=== PATIENT | male | born 1975 | race Caucasian/White ===

== ENCOUNTER 2017-05-24 13:17 | Outpatient (CLI) ==
--- NOTE | 2017-05-24 15:51 | MRI ---
EXAM: MRI of the left shoulder without contrast COMPARISON: None available. HISTORY: Left shoulder pain and decreased range of motion. TECHNIQUE: Multiplanar noncontrast MR images of the left shoulder were acquired using a 1.2 Perri ma gnet. Several sequences were repeated due to patient motion artifact. FINDINGS: No recent radiographs of the left shoulder are available for comparison and radiographic c orrelation is recommended. There is marked subscapularis tendinosis with a partial tear along the superior insertional fibers. Mild supraspinatus infraspinatus tendinosis. No full-thickness rotator cuff tear or tendon retractio n. No significant fluid in the subacromial/subdeltoid bursa. Mild glenohumeral joint osteoarthrosis without evidence of an acute fracture dislocation. There is a small joint effusion. There is hyperintense signal along the axillary pouch/anterior band of the in ferior glenohumeral ligament which may represent sequela of a capsular sprain/injury or changes of ad hesive capsulitis. There is limited assessment of the glenoid labrum on this non arthrographic study . Diminished size and hyperintense signal involving the anterior glenoid labrum and a tear at that s ite is not excluded on this non arthrographic study. The long head of the biceps is located within the bicipital groove and is intact. Long head biceps te nosynovitis. Moderate hypertrophic degenerative changes of the acromioclavicular joint with lateral downsloping of the acromion and a 2 mm subacromial spur. No evidence of an os acromiale or abnormal widening of th e acromioclavicular joint space. No soft tissue mass identified. IMPRESSION: 1. Hyperintense signal along the axillary pouch and anterior band of the inferior glenohumeral ligam ent which may represent sequela of a capsular sprain/injury or changes of adhesive capsulitis. Corre late clinically. 2. Rotator cuff tendinosis which is most severe involving the subscapularis with partial-thickness t ear of the insertional fibers of the subscapularis. No full-thickness rotator cuff tear or tendon re traction. 3. Hyperintense signal diminished size of the anterior glenoid labrum. A tear at that level is not excluded and correlation with MR arthrography could be considered if clinically warranted. 4. Moderate hypertrophic degenerative changes of the acromioclavicular joint with lateral downslopin g of the acromion representing potential sources of subacromial impingement. 5. Long head biceps tenosynovitis.
== END 2017-05-24 13:18 | disposition home or self-care (01) ==
LOC: RAD 13:17
PROVIDERS: ATTEND Family Medicine
DX: M25.512 Pain in left shoulder (principal)

== ENCOUNTER 2017-05-25 08:20 | Outpatient (RCR) ==
--- NOTE | 2017-06-01 11:00 | RS.OPPTEV2 ---
Date of Note: 05/25/17 Visit #: 1 Date of Evaluation: 05/25/17 Payer Source: Medicaid Surgery Performed?: No Treatment Diagnosis: L shld pain History of Condition/Mechanism of Injury:: pt states that he did not have a specific injury to L morganld, just began hurting when trying to exercise. Prior Level of Function.....Patient was independent with: ADL's, Self Care, Ambulation/Mobility, Community Integration/Access Functional Limitations: Reaching, Pushing, Pulling, Lifting, Carrying Current Subjective/complaints:: pt states his cali has been hurting for approx 2 weeks, had an MRI at [facility] on 05/24/17. Treatment Side (optional): Left *Precautions: n/a Medical History Medical History: Arthritis Surgical History Comments:: knee surgery Smoking Status: Never smoker Diagnostic Testing/Imaging:: MRI L morganld 05/24/17: rotator cuff tendinosis, partial thickness tear of insertional fivers of subscapularis, a tear of glenoid labrum cannot be excluded, moderate hypertrophic degenerative changes of AC joint with lateral downsloping of acromion representing potential sources of subacromial impingement. Long head biceps tenosynovitis. Hx Home Medications: mobic Patient's Goals: be able to work out and decrease pain. Pain Assessment - Pain Description Pain Location: L shld Pain Description: Aching Current Pain Intensity: 2 Functional Outcome Measure - G Codes & Severity Modifier G Codes & Modifier: n/a Source of G Code score: n/a Observation - Observation Posture: Forward Head, Rounded Shoulders Handedness: Right Gait - Gait Pattern General Gait Pattern Observation: No Deviations/Normal General Range of Motion: RUE WFL's. BLE WFL's Muscle Strength: RUE 5/5. BLE 5/5 Shoulder ROM: Right WFL's Shoulder Muscle Strength: Right WFL's - Left Shoulder ROM Left Shoulder Flexion: 141 Left Shoulder Abduction: 95 Left Shoulder External Rotation: 25 Left Shoulder ROM Limitations: Soft Tissue Tightness, Muscle Weakness, Pain - Left Shoulder Strength Left Shoulder Flexion: 3- Fair- Left Shoulder Extension: 3 Fair Left Shoulder Abduction: 3- Fair- Left Shoulder External Rotation: 3- Fair- - Special Tests Shoulder Empty Can (Supraspinatus) Test: Negative Left Shoulder Speed's Sign Test: Positive Left Palpation Palpation Findings: Tenderness, Muscle Guarding Comments:: tenderness noted at biceps insertion as well as AC joint. Sensation - Sensation Right Upper Extremity: Intact/Normal Left Upper Extremity: Intact/Normal Right Lower Extremity: Intact/Normal Left Lower Extremity: Intact/Normal Balance - Sitting Balance Static Sitting Balance: Normal Dynamic Sitting Balance: Normal - Standing Balance Static Standing Balance: Normal Dynamic Standing Balance: Normal - Treatment Modality: Ultrasound Parameters/Method Applied: 1.5w/cm2 x 7 mins Treatment Area: L shld area of biceps tendon Patient Position: Sitting - Heat/Cryotherapy Treatment: Cryotherapy Comments:: L shld Interventions - Exercise/Activities/Manual Therapy Exercises/Activities: pt performed isometrics in shld flex, ext, abd, add. pendulum ex, scapular retraction with green t band. Manual Therapy: n/a HOME EXERCISE PROGRAM: pt given written HEP including isometrics, pendulum ex, scapular retraction, to ice shld after ex - Charges Timed Code Treatment Minutes: 46 Total Treatment Time: 60 Procedures billed for this date of service:: eval low, us, cp EVALUATION COMPLEXITY LEVEL EVALUATION COMPLEXITY LEVEL: HISTORY: Low, EXAM OF BODY SYSTEMS: Medium, CLINICAL PRESENTATION: Medium, CLINICAL DECISION MAKING: Low Assessment Assessment: pt presents with pain L shld especially with supination and ER. pt also with decreased ROM L shld and weakness. After eval received call from Dr. Ornelas and he is referring patient to ortho MD due to results of MRI. Will hold PT until after sees ortho and await new orders. No further visits planned at this time. Will reeval with new order from ortho. Patient Education: Home Exercise Program, Education of Plan of Care Rehab Potential: Good Plan - Treatment to be Provided Procedures: Therapeutic Exercises, Patient Education Modalities: Ultrasound/Phonophoresis, Cryotherapy Other:: pt given written HEP - Treatment Plan Frequency: eval only Duration: One time treatment ORDER # VISITS AND/OR THROUGH DATE: 05/25/17 - Treatment Code (1) Pain in joint, shoulder region Code(s): M25.519 - PAIN IN UNSPECIFIED SHOULDER Qualifiers: Laterality: left Qualified Code(s): M25.512 - Pain in left shoulder (2) Joint stiffness Code(s): M25.60 - STIFFNESS OF UNSPECIFIED JOINT, NOT ELSEWHERE CLASSIFIED (3) Muscle weakness Code(s): M62.81 - MUSCLE WEAKNESS (GENERALIZED)
== END 2017-06-01 13:13 | disposition still patient (30) ==
PROVIDERS: ATTEND Family Medicine
DX: M25.512 Pain in left shoulder (principal)

== ENCOUNTER 2017-06-04 10:00 | Outpatient (RCR) ==
--- NOTE | 2017-06-02 08:24 | RS.OPPTEV2 ---
Date of Note: 06/01/17 Visit #: 1 Date of Evaluation: 06/01/17 Payer Source: Medicaid Procedure Performed: Left shoulder manipulation 06/01/17 Treatment Diagnosis: Left shoulder pain, shoulder stiffness, s/p left shoulder manipulation History of Condition/Mechanism of Injury:: Patient reports left shoulder pain came on without injury. Pain came on progressively, especially with trying to work out. Prior Level of Function.....Patient was independent with: ADL's, Self Care, Ambulation/Mobility, Community Integration/Access Functional Limitations: Reaching, Pushing, Pulling, Lifting, Carrying Current Subjective/complaints:: Patient reports icing the shoulder when he got home from the manipulation procedure this morning. States he has not taken any pain medication today. He is right hand dominant. Reports he did have stiffness in the shoulder prior to this procedure today. Denies tingling or numbness in the left UE. Treatment Side (optional): Left *Precautions: n/a Medical History Medical History: Arthritis Surgical History Comments:: knee surgery Smoking Status: Never smoker Hx Home Medications: mobic, percocet Patient's Goals: His goal is to regain full, pain-free AROM of the left UE. Pain Assessment - Pain Description Pain Location: left shoulder Current Pain Intensity: not quantified Worst Pain Intensity: not quantified Functional Outcome Measure UE Functional Index: 51 (51/80=36.25% impairment) - G Codes & Severity Modifier G Codes & Modifier: NA Source of G Code score: NA Observation - Observation Posture: Forward Head, Rounded Shoulders Handedness: Right Shoulder ROM: Right WFL's Shoulder Muscle Strength: Right WFL's - Left Shoulder ROM Left Shoulder Flexion: 140 (degrees AROM) Left Shoulder Abduction: 108 (degrees AROM) Left Shoulder Internal Rotation: 50 (degrees AROm) Left Shoulder External Rotation: 30 (degrees w/ arm at side) Comments: PROM of left shoulder: flexion 155 degrees, abduction 130 degrees, ER 60 degrees with shoulder ABD, ER 50 degrees with arm at side. IR 70 degrees. - Left Shoulder Strength Left Shoulder Flexion: 4+ Good + Left Shoulder Extension: 5 Normal Left Shoulder Abduction: 4+ Good + Left Shoulder Adduction: 5 Normal Left Shoulder External Rotation: 4 Good Left Shoulder Internal Rotation: 4 Good Palpation Comments:: General soreness to the left shoulder joint. Sensation - Sensation Right Upper Extremity: Intact/Normal Left Upper Extremity: Intact/Normal - Heat/Cryotherapy Treatment: Cryotherapy (X 10 mins following ROM/stretching) Interventions - Exercise/Activities/Manual Therapy Exercises/Activities: patient received PROM/stretching to the left shoulder in all directions. Instructed in HEP of pendulum, scapular retraction, wall slides into shoulder flexion, abduction, and door stretch for ER. Discussed the manipulation procedure and why it is important to perform ROM exercises several times a day at home to maintain his ROM. Also encouraged him to ice the shoulder following exercises. Manual Therapy: n/a HOME EXERCISE PROGRAM: pendulum, scapular retraction, wall slides into shoulder flexion, abduction, and door stretch for ER. - Charges Timed Code Treatment Minutes: 45 mins Total Treatment Time: 55 mins Procedures billed for this date of service:: JACQUELINE Lares , EX EVALUATION COMPLEXITY LEVEL EVALUATION COMPLEXITY LEVEL: HISTORY: Low, EXAM OF BODY SYSTEMS: Low, CLINICAL PRESENTATION: Low, CLINICAL DECISION MAKING: Low Assessment Assessment: Patient presents today s/p left shoulder mainpulation this morning. He demonstrates limited AROM and strength of the left shoulder. He has had progressive difficulty with reaching and lifting with the left UE due to pain and limited motion. He feels he has more motion today since the manipulation, but continues to have pain and limited use with the left. He demonstrates great potential to regain pain-free, full AROM of the left shoulder with progressed ROM and strengthening exercises. Patient Education: Education of diagnosis, Body/Joint mechanics, Home Exercise Program, Activity Modification, Education of Plan of Care Rehab Potential: Good Short Term Goals Goal #1: Left shoulder PROM WNL's. Goal to be met by: 06/09/17 Goal #2: Left shoulder ER to 45 degrees actively. Goal to be met by: 06/09/17 Goal #3: Left shoulder strength 4+/5 in available range. Goal to be met by: 06/09/17 Director Of Event Sales Goals Goal #1: Pt knows HEP and to continue ex's to maintain functional level at D/C. Goal to be met by: 06/22/17 Goal #2: Score on UE functional scale improved to 72/80. Goal to be met by: 06/22/17 Goal #3: Left shldr AROM WFL's to perform functional reaching w/o difficulty. Goal to be met by: 06/22/17 Goal #4: Pt to demonstrate good postural awareness. Goal to be met by: 06/22/17 Plan - Treatment to be Provided Procedures: Therapeutic Exercises, Therapeutic Activity, Manual Therapy (Joint Mobilization), Patient Education Modalities: Cryotherapy - Treatment Plan Frequency: Daily Duration: 2 weeks ORDER # VISITS AND/OR THROUGH DATE: 06/22/17 - Treatment Code (1) Shoulder pain Code(s): M25.519 - PAIN IN UNSPECIFIED SHOULDER Qualifiers: Chronicity: acute Laterality: left Qualified Code(s): M25.512 - Pain in left shoulder (2) Shoulder stiffness Qualifiers: Laterality: left Qualified Code(s): M25.612 - Stiffness of left shoulder, not elsewhere classified (3) Other specified postprocedural states Code(s): Z98.89 - OTHER SPECIFIED POSTPROCEDURAL STATES * DO NOT USE * Comments: s/p left shoulder manipulation (4) Adhesive capsulitis of left shoulder Code(s): M75.02 - ADHESIVE CAPSULITIS OF LEFT SHOULDER Comments: M75.02
--- NOTE | 2017-06-02 12:09 | RS.OPPTDN ---
Subjective Date of Note: 06/02/17 Visit #: 2 Date of Evaluation: 06/01/17 Payer Source: Medicaid Treatment Diagnosis: Left shoulder pain, shoulder stiffness, s/p left shoulder manipulation Current Subjective/complaints:: Patient denies any pain this morning. He says he has been working on HEP. States he will take the percocet once he gets home from treatment today if he feels that he needs it. He is using ice at home and it is relieving his pain. States he can see he has more mobility than before manipulation. *Precautions: n/a - Heat/Cryotherapy Treatment: Cryotherapy (15 mins to the L shoulder in sitting after therex) Interventions - Exercise/Activities/Manual Therapy Exercises/Activities: Patient received PROM/stretching to the left shoulder in all directions. Patient receives long axis distraction and A/P joint mobs multiple reps. Oscillation to the L shoulder during PROM. 2# wand (weight at L end for shoulder stretch) for bilateral shoulder flexion with static stretches x 10. Sitting AAROM 1# for ABD x 8 to 170 degrees. Green tband for scap retraction x 10. Shoulder shrugs. Encouraged HEP and use of heat in shower for wall slides and pectoralis stretch. Also, ice after therex. Total minutes of Exercise: 32 Manual Therapy: n/a HOME EXERCISE PROGRAM: pendulum, scapular retraction, wall slides into shoulder flexion, abduction, and door stretch for ER. - Charges Timed Code Treatment Minutes: 32 Total Treatment Time: 47 Procedures billed for this date of service:: cp, ex2 Assessment: Patient reinier all therex well with mild pain only in flexion stretch position with wand. Some discomfort and limitation with ER/IR, but did improve as time progressed in the dept today. He is able to perform FLEX and ABD AAROM to 170 today. Patient Education: Education of diagnosis, Body/Joint mechanics, Home Exercise Program, Education of Plan of Care Patient demonstrates compliance with HEP?: Yes Short Term Goals Goal #1: Left shoulder PROM WNL's. Goal to be met by: 06/09/17 Progress towards Goal:: Progressing Goal #2: Left shoulder ER to 45 degrees actively. Goal to be met by: 06/09/17 Progress towards Goal:: Progressing Goal #3: Left shoulder strength 4+/5 in available range. Goal to be met by: 06/09/17 Sheeter Operator Goals Goal #1: Pt knows HEP and to continue ex's to maintain functional level at D/C. Goal to be met by: 06/22/17 Goal #2: Score on UE functional scale improved to 72/80. Goal to be met by: 06/22/17 Goal #3: Left shldr AROM WFL's to perform functional reaching w/o difficulty. Goal to be met by: 06/22/17 Goal #4: Pt to demonstrate good postural awareness. Goal to be met by: 06/22/17 Plan PLAN OF CARE EXPIRES ON:: 06/22/17 ORDER # VISITS AND/OR THROUGH DATE: 06/22/17 PLAN: Continue daily s/p manipulation for ROM normalization to the L shoulder
--- NOTE | 2017-06-03 11:59 | RS.OPPTDN ---
Subjective Date of Note: 06/03/17 Visit #: 3 Date of Evaluation: 06/01/17 Payer Source: Medicaid Treatment Diagnosis: Left shoulder pain, shoulder stiffness, s/p left shoulder manipulation Current Subjective/complaints:: Patient says that he took one pain pill after his appt yesterday, but says he does not have any pain today. Reports he was able to perform several full jumping jacks last night and has not been able to do since his arm has been hurt. Reports he can tell he has more mobility. *Precautions: n/a Pain Assessment - Pain Description Pain Location: none - Heat/Cryotherapy Treatment: Cryotherapy (15 mins to the L shoulder after therex in sitting) Interventions - Exercise/Activities/Manual Therapy Exercises/Activities: Continued with PROM/stretching to the left shoulder in all directions. Patient receives long axis distraction and A/P joint mobs multiple reps. Oscillation to the L shoulder during PROM. 3# wand (2#weight at L end for shoulder stretch) for bilateral shoulder flexion with static stretches x 10. 2# dumbell for shoulder flexion from 90 degrees to end range x 5 with static holds. Sitting AAROM 1# for ABD x 8 to 170 degrees. Green tband for scap retraction x 10. Shoulder shrugs. Encouraged HEP and use of heat in shower for wall slides and pectoralis stretch. Also, ice after therex. Total minutes of Exercise: 33 Manual Therapy: n/a HOME EXERCISE PROGRAM: pendulum, scapular retraction, wall slides into shoulder flexion, abduction, and door stretch for ER. - Charges Timed Code Treatment Minutes: 33 Total Treatment Time: 48 Procedures billed for this date of service:: cp, ex2 Assessment: Patient able to notice he can return to some cardio at home by full jumping jacks multiple reps. Patient presents with no pain and less tightness during all ROM. Patient Education: Home Exercise Program, Education of Plan of Care Patient demonstrates compliance with HEP?: Yes Short Term Goals Goal #1: Left shoulder PROM WNL's. Goal to be met by: 06/09/17 Progress towards Goal:: Progressing Goal #2: Left shoulder ER to 45 degrees actively. Goal to be met by: 06/09/17 Progress towards Goal:: Progressing Goal #3: Left shoulder strength 4+/5 in available range. Goal to be met by: 06/09/17 Prevention Rn Goals Goal #1: Pt knows HEP and to continue ex's to maintain functional level at D/C. Goal to be met by: 06/22/17 Goal #2: Score on UE functional scale improved to 72/80. Goal to be met by: 06/22/17 Goal #3: Left shldr AROM WFL's to perform functional reaching w/o difficulty. Goal to be met by: 06/22/17 Goal #4: Pt to demonstrate good postural awareness. Goal to be met by: 06/22/17 Plan PLAN OF CARE EXPIRES ON:: 06/22/17 ORDER # VISITS AND/OR THROUGH DATE: 06/22/17 PLAN: Patient to continue therex tomorrow and daily next week to improve L shoulder ROM
--- NOTE | 2017-06-04 15:43 | RS.OPPTDN ---
Subjective Date of Note: 06/04/17 Visit #: 4 Date of Evaluation: 06/01/17 Payer Source: Medicaid Treatment Diagnosis: Left shoulder pain, shoulder stiffness, s/p left shoulder manipulation Current Subjective/complaints:: Patient says he had some increase in pain after yesterday's session, but he was not able to take his pain meds until ~bedtime. He says he is able to see mobility is improving and performs HEP often. *Precautions: n/a Pain Assessment - Pain Description Pain Location: none, sore yesterday - Heat/Cryotherapy Treatment: Cryotherapy (15 mins to L shoulder after therex) Interventions - Exercise/Activities/Manual Therapy Exercises/Activities: Continued with PROM/stretching to the left shoulder in all directions. Patient receives long axis distraction and A/P joint mobs multiple reps. Continued oscillation to the L shoulder during PROM. 1# wand ( no additional weight for shoulder stretch in case this is what may have caused increased soreness yesterday) for bilateral shoulder flexion with static stretches x 10. Supine ER stretch with 1# wand x 10. Sitting AAROM 1# for FLEX and ABD x 8 to 170 degrees. Green tband for scap retraction x 10. Shoulder shrugs. Measurements taken. Total minutes of Exercise: 33 Manual Therapy: n/a HOME EXERCISE PROGRAM: pendulum, scapular retraction, wall slides into shoulder flexion, abduction, and door stretch for ER. - Charges Timed Code Treatment Minutes: 33 Total Treatment Time: 48 Procedures billed for this date of service:: cp, ex2 Assessment: FLEX actively has improved to 162 degrees (passive 165). ABD actively 158 degrees (passive 165). ER actively to 53 (passive 60). IR actively to 62 Patient Education: Body/Joint mechanics, Education of Plan of Care Patient demonstrates compliance with HEP?: Yes Short Term Goals Goal #1: Left shoulder PROM WNL's. Goal to be met by: 06/09/17 Progress towards Goal:: Partially Met Goal #2: Left shoulder ER to 45 degrees actively. Goal to be met by: 06/09/17 Progress towards Goal:: Met Goal #3: Left shoulder strength 4+/5 in available range. Goal to be met by: 06/09/17 Public Health Program Manager Goals Goal #1: Pt knows HEP and to continue ex's to maintain functional level at D/C. Goal to be met by: 06/22/17 Progress towards goal: Progressing Goal #2: Score on UE functional scale improved to 72/80. Goal to be met by: 06/22/17 Goal #3: Left shldr AROM WFL's to perform functional reaching w/o difficulty. Goal to be met by: 06/22/17 Progress towards goal: Progressing Goal #4: Pt to demonstrate good postural awareness. Goal to be met by: 06/22/17 Plan PLAN OF CARE EXPIRES ON:: 06/22/17 ORDER # VISITS AND/OR THROUGH DATE: 06/22/17 PLAN: Patient to continue daily next week for mobility improvement for the L UE
== END 2017-06-05 ==
PROVIDERS: ATTEND Orthopaedic Surgery
DX: M75.02 Adhesive capsulitis of left shoulder (principal)

== ENCOUNTER 2017-06-11 10:00 | Outpatient (RCR) ==
--- NOTE | 2017-06-07 13:35 | RS.OPPTDN ---
Subjective Date of Note: 06/07/17 Visit #: 5 Date of Evaluation: 06/01/17 Payer Source: Medicaid Treatment Diagnosis: Left shoulder pain, shoulder stiffness, s/p left shoulder manipulation Current Subjective/complaints:: Patient says his shoulder has been less painful over the weekend. Reports he continues to work on HEP and is able to see improvement with his mobility. *Precautions: n/a Pain Assessment - Pain Description Pain Location: slight to none (with stretching to end ranges and at rest respectively) - Heat/Cryotherapy Treatment: Cryotherapy (15 mins to the L shoulder after therex) Interventions - Exercise/Activities/Manual Therapy Exercises/Activities: Continued with PROM/stretching to the left shoulder in all directions. Patient continues to receive long axis distraction and A/P joint mobs multiple reps. Continued oscillation to the L shoulder during PROM. 1# wand for static stretching for bilateral shoulder flexion x 10. Supine ER stretch with 1# wand x 10. Manual isometrics IR/ER/FLEX/EXT 2x5. Sitting AAROM 1# for FLEX and ABD x 8 to 170 degrees. Progressed to blue tband for scap retraction x 10. Shoulder shrugs. Total minutes of Exercise: 33 Manual Therapy: n/a HOME EXERCISE PROGRAM: pendulum, scapular retraction, wall slides into shoulder flexion, abduction, and door stretch for ER. - Charges Timed Code Treatment Minutes: 33 Total Treatment Time: 48 Procedures billed for this date of service:: cp, ex2 Assessment: Patient maintaining low to 0/10 pain level for the L UE. He has mild soreness at end ranges only. Sporadic non-pain producing popping felt with eccentric flexion in supine and patient reporting at home. He demo AROM for FLEX and ABD WFL and near WNL, but will be limited due to musculature. Patient Education: Education of diagnosis, Home Exercise Program Patient demonstrates compliance with HEP?: Yes Short Term Goals Goal #1: Left shoulder PROM WNL's. Goal to be met by: 06/09/17 Progress towards Goal:: Partially Met Comments:: for FLEX and ABD Goal #2: Left shoulder ER to 45 degrees actively. Goal to be met by: 06/09/17 Progress towards Goal:: Met Goal #3: Left shoulder strength 4+/5 in available range. 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 Goal to be met by: 06/22/17 Progress towards goal: Progressing Goal #2: Score on UE functional scale improved to 72/80. Goal to be met by: 06/22/17 Comments: to complete this week Goal #3: Left shldr AROM WFL's to perform functional reaching w/o difficulty. Goal to be met by: 06/22/17 Progress towards goal: Partially Met Goal #4: Pt to demonstrate good postural awareness. Goal to be met by: 06/22/17 Plan PLAN OF CARE EXPIRES ON:: 06/22/17 ORDER # VISITS AND/OR THROUGH DATE: 06/22/17 PLAN: Patient to complete this week according to orders. Follow up with .
--- NOTE | 2017-06-08 11:03 | RS.OPPTDN ---
Subjective Date of Note: 06/08/17 Visit #: 6 Date of Evaluation: 06/01/17 Payer Source: Medicaid Treatment Diagnosis: Left shoulder pain, shoulder stiffness, s/p left shoulder manipulation Current Subjective/complaints:: Patient says he has started working with weights at home and feels only discomfort. Says he has felt tightness at end ranges with flexion and ER only. Reports he has been stretching to gain ER at home. *Precautions: n/a Pain Assessment - Pain Description Pain Location: discomfort only at end ranges - Heat/Cryotherapy Treatment: Cryotherapy (15 mins to the L shoulder in sitting after therex) Interventions - Exercise/Activities/Manual Therapy Exercises/Activities: Continued with PROM/stretching to the left shoulder in all directions. Patient continues to receive long axis distraction and A/P joint mobs multiple reps. Continued oscillation to the L shoulder during PROM to improve guarding. 1# wand for static stretching using 2 1/2# at the L end for bilateral shoulder flexion x 10. 3 1/2# wand for chest presses x 15. Blue tband for shoulder pull downs and bilateral shoulder horizontal abd x 15. Sitting: scap retraction with blue tband x 15, bilateral shoulder flexion with 3 1/2#, 2# dumbell for shoulder flexion and abd sequence x 8. Supine ER stretch with 1# wand x 10. Manual isometrics IR/ER/FLEX/EXT 2x5. Total minutes of Exercise: 35 Manual Therapy: n/a HOME EXERCISE PROGRAM: pendulum, scapular retraction, wall slides into shoulder flexion, abduction, and door stretch for ER. - Charges Timed Code Treatment Minutes: 35 Total Treatment Time: 50 Procedures billed for this date of service:: ex2 cp Assessment: Patient continues to demo increased reinier to progressive activity at home and here in our dept. ABD actively is now WNL and FLEX is ~168 degrees in sitting. Patient Education: Home Exercise Program, Education of Plan of Care Patient demonstrates compliance with HEP?: Yes Short Term Goals Goal #1: Left shoulder PROM WNL's. Goal to be met by: 06/09/17 Progress towards Goal:: Partially Met Goal #2: Left shoulder ER to 45 degrees actively. Goal to be met by: 06/09/17 Progress towards Goal:: Met Goal #3: Left shoulder strength 4+/5 in available range. Goal to be met by: 06/09/17 Progress towards Goal:: Progressing Nursing Home Goals Goal #1: Pt knows HEP and to continue ex's to maintain functional level at D/C. Goal to be met by: 06/22/17 Progress towards goal: Progressing Goal #2: Score on UE functional scale improved to 72/80. Goal to be met by: 06/22/17 Goal #3: Left shldr AROM WFL's to perform functional reaching w/o difficulty. Goal to be met by: 06/22/17 Progress towards goal: Partially Met Goal #4: Pt to demonstrate good postural awareness. Goal to be met by: 06/22/17 Plan PLAN OF CARE EXPIRES ON:: 06/22/17 ORDER # VISITS AND/OR THROUGH DATE: 06/22/17 PLAN: Patient to continue this week to advance HEP and FLEX and rotation
--- NOTE | 2017-06-09 14:10 | RS.OPPTDN ---
Subjective Date of Note: 06/09/17 Visit #: 7 Date of Evaluation: 06/01/17 Payer Source: Medicaid Treatment Diagnosis: Left shoulder pain, shoulder stiffness, s/p left shoulder manipulation Current Subjective/complaints:: Patient denies any increase in symptoms from yesterday's progression of exercises. *Precautions: n/a - Heat/Cryotherapy Treatment: Cryotherapy (15 mins to the L shoulder in supine) Interventions - Exercise/Activities/Manual Therapy Exercises/Activities: Continued with stretching to the left shoulder in all directions in supine. Patient continues to receive long axis distraction. Continued oscillation to the L shoulder during PROM to improve guarding. Manual isometrics IR/ER/FLEX/EXT 2x5. 1# wand for static stretching using 2 1/2 # at the L end for bilateral shoulder flexion x 10. 3 1/2# wand for chest presses x 15. Blue tband for shoulder pull downs and bilateral shoulder horizontal abd x 15. Sitting: scap retraction with blue tband x 15, bilateral shoulder flexion with 3 1/2#, 2# dumbell for shoulder flexion and abd sequence x 8. 2# PREs for horizontal abd/add to neutral in sitting x 8. Total minutes of Exercise: 36 Manual Therapy: n/a HOME EXERCISE PROGRAM: pendulum, scapular retraction, wall slides into shoulder flexion, abduction, and door stretch for ER. - Charges Timed Code Treatment Minutes: 36 Total Treatment Time: 51 Procedures billed for this date of service:: cp, ex2 Assessment: Patient continues to progress with all therex maintaining no pain, only mild muscle fatigue during the activity. Patient Education: Body/Joint mechanics, Home Exercise Program, Education of Plan of Care Patient demonstrates compliance with HEP?: Yes Short Term Goals Goal #1: Left shoulder PROM WNL's. Goal to be met by: 06/09/17 Progress towards Goal:: Met Goal #2: Left shoulder ER to 45 degrees actively. Goal to be met by: 06/09/17 Progress towards Goal:: Met Goal #3: Left shoulder strength 4+/5 in available range. 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 Goal to be met by: 06/22/17 Progress towards goal: Progressing Goal #2: Score on UE functional scale improved to 72/80. Goal to be met by: 06/22/17 Comments: Reassess Fri Goal #3: Left shldr AROM WFL's to perform functional reaching w/o difficulty. Goal to be met by: 06/22/17 Progress towards goal: Partially Met Goal #4: Pt to demonstrate good postural awareness. Goal to be met by: 06/22/17 Progress towards goal: Progressing Plan PLAN OF CARE EXPIRES ON:: 06/22/17 ORDER # VISITS AND/OR THROUGH DATE: 06/22/17 PLAN: Patient to continue per POC for progressive therex
--- NOTE | 2017-06-10 11:12 | RS.CXNS ---
Date of scheduled appointment: 06/10/17 Type: Cancel (Patient calls to cancel appointment today. States he is hurting too bad. When manager collection asked if it was patients shoulder, he responsed no. No further info. Patient scheduled for tomorrow.)
--- NOTE | 2017-06-11 15:49 | RS.OPPTDN ---
Subjective Date of Note: 06/11/17 Visit #: 8 Date of Evaluation: 06/01/17 Payer Source: Medicaid Treatment Diagnosis: Left shoulder pain, shoulder stiffness, s/p left shoulder manipulation Current Subjective/complaints:: Patient reports doing well with left shoulder ROM. He is performing his exercises at home. Reports he has been a little more sore today. *Precautions: n/a Interventions - Exercise/Activities/Manual Therapy Exercises/Activities: Patient receives stretching to the left shoulder in all directions in supine. Continued oscillation to the L shoulder during PROM to decrease muscle guarding. Manual isometrics IR/ER/FLEX/EXT/horiz abd/add 2x5. 1# wand for static stretching using 2 1/2# at the L end for bilateral shoulder flexion x 10. 3 1/2# wand for chest presses x 15. Blue tband for shoulder pull downs and bilateral shoulder horizontal abd x 15. Sitting: scap retraction with blue tband x 15, bilateral shoulder flexion with 3 1/2#, 5# weight for RTC series in pendulum position. Patient is shakey at end range in all directions. Performed scapular stabilization with blue theraband. Patient given green, blue, and black theraband to progress exercises. Discussed safe progression of starting back into working out and weight lifting. Manual Therapy: n/a HOME EXERCISE PROGRAM: pendulum, scapular retraction, wall slides into shoulder flexion, abduction, and door stretch for ER. - Objective Findings Observations,measurements,etc.: AROM of left shoulder: flexion 165 degrees, Abduction 154 degrees, ER 75 degrees while in shoulder abduction. Muscle strength 4+/5 of left shoulder. Demonstrates less scapular stability on the left during left shoulder AROM. - Charges Timed Code Treatment Minutes: 38 mins Total Treatment Time: 38 mins Procedures billed for this date of service:: EX2 Assessment: Patient reports less left shoulder pain and more mobility. Demonstrates much improved AROM of the left shoulder in all directions. He still has some light discomfort at end range. Left shoulder strength 4+/5. He demonstrates the need for further scapular stability exercises. Patient demonstrates compliance with HEP?: Yes Short Term Goals Goal #1: Left shoulder PROM WNL's. Goal to be met by: 06/09/17 Progress towards Goal:: Met Goal #2: Left shoulder ER to 45 degrees actively. Goal to be met by: 06/09/17 Progress towards Goal:: Met Goal #3: Left shoulder strength 4+/5 in available range. Goal to be met by: 06/09/17 Progress towards Goal:: Met Half-Way Goals Goal #1: Pt knows HEP and to continue ex's to maintain functional level at D/C. Goal to be met by: 06/22/17 Progress towards goal: Met Goal #2: Score on UE functional scale improved to 72/80. Goal to be met by: 06/22/17 Progress towards goal: Progressing Comments: Improved to 63/80, scored by therapist based on subjective reports. Goal #3: Left shldr AROM WFL's to perform functional reaching w/o difficulty. Goal to be met by: 06/22/17 Progress towards goal: Partially Met Goal #4: Pt to demonstrate good postural awareness. Goal to be met by: 06/22/17 Progress towards goal: Met Plan PLAN OF CARE EXPIRES ON:: 06/22/17 ORDER # VISITS AND/OR THROUGH DATE: 06/22/17 PLAN: Pt follows up with physician on Wednesday.
--- NOTE | 2017-07-06 11:21 | RS.QUICKDC ---
Discharge from PT Date of Discharge: 07/06/17 Number of Visits: 8 Reason for Discharge: Patient attended all approved visits regarding the L shoulder following manipulation. He progressed well with all therex for ROM and strength. He admitted little to no pain. He had progressive tbands at home. PROM is ~WNL all directions. AROM of left shoulder: flexion 165 degrees , Abduction 154 degrees, ER 75 degrees while in shoulder abduction. Muscle strength 4+/5 of left shoulder. Demonstrates less scapular stability on the left during left shoulder AROM. See daily notes for specific treatment.
== END 2017-07-05 23:59 ==
PROVIDERS: ATTEND Orthopaedic Surgery
DX: M25.512 Pain in left shoulder (principal); M25.612 Stiffness of left shoulder, not elsewhere classified; M62.81 Muscle weakness (generalized)

== ENCOUNTER 2017-08-21 08:37 | Outpatient (CLI) | END 2017-08-21 08:38 | disposition home or self-care (01) | LOC: LAB 08:37 | PROVIDERS: ATTEND Family Medicine | DX: R53.83 Other fatigue (principal) | CPT/HCPCS: 36415; 80053; 84403; 84443; 85025 ==

== ENCOUNTER 2017-09-09 11:14 | Outpatient (CLI) ==
--- NOTE | 2017-09-09 12:08 | DI ---
EXAM: Left hand three-view HISTORY: Pain in left hand COMPARISON: None FINDINGS: The bones are normal. The joints are normal. No focal soft tissue abnormality. IMPERSSION: Normal examination.
--- NOTE | 2017-09-09 12:10 | DI ---
EXAM: Right hand three-view HISTORY: Pain in right hand COMPARISON: None FINDINGS: The bones are normal. The joints are normal. No focal soft tissue abnormality. IMPERSSION: Normal examination.
--- NOTE | 2017-09-09 12:10 | DI ---
EXAM: Five views of the lumbar spine. History: Lower back pain. Findings: No acute fracture or subluxation of the lumbar spine. Disc space heights are preserved. No abnormal calcifications or radiopaque foreign bodies. Mild facet hypertrophy within the lower lum bar spine. Small nonspecific pelvic calcifications are probably phleboliths. 2 mm calcification see n within the left abdomen. Impression: 1. No acute osseous abnormality of the lumbar spine and no significant degenerative changes. 2. 2 mm calcification within the left abdomen is nonspecific. Cannot exclude renal stone.
== END 2017-09-09 11:15 | disposition home or self-care (01) ==
LOC: LAB 11:14
PROVIDERS: ATTEND Nurse Practitioner Family
DX: R25.2 Cramp and spasm (principal); M54.5 Low back pain; M79.641 Pain in right hand; M79.642 Pain in left hand
CPT/HCPCS: 36415; 80053; 85025

== ENCOUNTER 2017-09-21 17:59 | Emergency (ER) ==
[2017-09-21 18:03] VITALS: BP 131/85; TEMP 98.4; BMI 32.5
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
== END 2017-09-21 19:54 | disposition home or self-care (01) ==
LOC: ED 17:59
DX: S39.012A Strain of muscle, fascia and tendon of lower back, initial encounter (principal); M54.2 Cervicalgia; M79.674 Pain in right toe(s); M25.551 Pain in right hip; W31.3XXA Contact with prime movers, initial encounter; Y93.H3 Activity, building and construction; Y92.69 Other specified industrial and construction area as the place of occurrence of the external cause; Y99.0 Civilian activity done for income or pay
CPT/HCPCS: 81001; 99283

== ENCOUNTER 2017-09-28 13:59 | Outpatient (CLI) | END 2017-09-28 14:00 | disposition home or self-care (01) | LOC: FCC-LAB 13:59 | PROVIDERS: ATTEND Family Medicine | DX: R53.83 Other fatigue (principal); D64.9 Anemia, unspecified; M13.0 Polyarthritis, unspecified; N17.9 Acute kidney failure, unspecified; R53.82 Chronic fatigue, unspecified; N52.9 Male erectile dysfunction, unspecified | CPT/HCPCS: 36415; 80053; 84403; 85025; 85651; 86038; 86140 ==

== ENCOUNTER 2017-11-25 14:39 | Outpatient (CLI) | END 2017-11-25 14:40 | disposition home or self-care (01) | LOC: CAR 14:39 | PROVIDERS: ATTEND Psychiatry & Neurology Sleep Medicine | DX: G47.33 Obstructive sleep apnea (adult) (pediatric) (principal) | CPT/HCPCS: 95810 ==

== ENCOUNTER 2018-04-30 08:09 | Outpatient (CLI) | payer BC, OTHER | END 2018-04-30 08:10 | disposition home or self-care (01) | LOC: LAB 08:09 | PROVIDERS: ATTEND Family Medicine | DX: Z00.00 Encounter for general adult medical examination without abnormal findings (principal); G47.33 Obstructive sleep apnea (adult) (pediatric); E29.1 Testicular hypofunction; R53.81 Other malaise | CPT/HCPCS: 36415; 80053; 80061; 84403; 84443; 85025 ==

== ENCOUNTER 2018-11-10 08:28 | Outpatient (CLI) ==
--- NOTE | 2018-11-10 08:59 | US ---
EXAM: Right upper quadrant abdominal ultrasound. History: Right upper quadrant abdominal pain. Technique: Multiple sonographic images through the abdomen were obtained. Color duplex Doppler was u sed to interrogate vascular flow. Findings: The liver is not enlarged. No focal liver lesions identified sonographically. No abdominal ascites. There is antegrade flow within the main portal vein. Limited visualization of the right kidney dem onstrates no abnormality. Cholelithiasis. No gallbladder wall thickening. Common bile duct measure s 0.3 cm in caliber. Pancreas was not well visualized due to obscuration by bowel gas. Impression: Cholelithiasis
== END 2018-11-10 08:29 | disposition home or self-care (01) ==
LOC: RAD 08:28
PROVIDERS: ATTEND Family Medicine
DX: R10.11 Right upper quadrant pain (principal)